=== PATIENT | male | born 1950 | race Two or more races ===

== ENCOUNTER 2022-10-09 16:39 | Emergency (ER) | payer OTHER ==
[~2022-10-09] VITALS: Ht 175.3 cm; Wt 89.8 kg
[2022-10-09] MEDS ORDERED: KETO10TA2 PO (20:17)
[2022-10-09] MEDS ORDERED: CIPRO500 MG PO (20:17)
[2022-10-09] MEDS ORDERED: TAMS0.4C PO (20:17)
== END 2022-10-09 20:24 | disposition home or self-care (01) ==
LOC: ER 16:39
DX: N20.9 Urinary calculus, unspecified (principal)